=== PATIENT | female | born 1945 | race Caucasian/White ===

== ENCOUNTER → 2023-11-29 10:39 | Outpatient (REF) | payer MEDICARE, SELFPAY ==
[2023-11-29 11:59] LABS: TSH Reflex To Free T4 1.68 uIU/ml (0.47-4.68)
== END ==
LOC: REG 10:39
PROVIDERS: ATTENDING PHYSICIAN Internal Medicine Gastroenterology; FAMILY PHYSICIAN Family Medicine
DX: K59.04 Chronic idiopathic constipation (principal)
CPT/HCPCS: 36415; 84443

== ENCOUNTER → 2023-12-01 11:51 | Outpatient (REF) | payer MEDICARE, SELFPAY | LOC: WDC 11:51 | PROVIDERS: ATTENDING PHYSICIAN Family Medicine | DX: Z12.31 Encounter for screening mammogram for malignant neoplasm of breast (principal) | CPT/HCPCS: 77063; 77067 ==

== ENCOUNTER → 2024-02-28 09:07 | Outpatient (REF) | payer MEDICARE, SELFPAY ==
[2024-02-28 11:58] LABS: Glycohemoglobin (HgbA1c) 6.5 % (4.0-5.6)
[2024-02-28 12:42] LABS: Blood Urea Nitrogen 19 mg/dl (7-17); Calcium 10.4 mg/dl (8.4-10.2); Carbon Dioxide 22 mmol/L (22-30); Chloride 104 mmol/L (98-107); Glucose 95 mg/dl (70-99); Potassium 4.2 mmol/L (3.5-5.1); Sodium 140 mmol/L (135-145); eGFR 51.11
== END ==
LOC: REG 09:07
PROVIDERS: ATTENDING PHYSICIAN Family Medicine
DX: E11.69 Type 2 diabetes mellitus with other specified complication (principal)
CPT/HCPCS: 36415; 80048; 83036

== ENCOUNTER → 2024-03-05 09:11 | Outpatient (REF) | payer MEDICARE, SELFPAY ==
[2024-03-05 10:17] LABS: % Basophils 0.5 % (0-2); % Eosinophils 0.9 % (0-6); % Immature Granulocytes 0.5 % (0-0.5); % Lymphocytes 32.1 % (20.5-51.1); % Monocytes 6.6 % (1.7-9.3); % Neutrophils 59.4 % (42.2-75.2); Absolute Basophils 0.1 10^3/uL (0-0.2); Absolute Eosinophils 0.1 10^3/uL (0-0.7); Absolute Immature Granulocytes 0.1 10^3/uL (0-0.05); Absolute Lymphocytes 4.1 10^3/uL (1.2-3.4); Absolute Monocytes 0.8 10^3/uL (0.1-0.6); Absolute Neutrophils 7.6 10^3/uL (1.4-6.5); Hematocrit 42.8 % (37.0-47.0); Hemoglobin 14.8 g/dL (12.0-16.0); Mean Corp Hgb Conc. 34.6 g/dL (33.0-37.0); Mean Corpuscular Volume 92.6 fL (81.0-99.0); Nucleated Red Blood Cells % 0 %; Platelet Count 284 10^3/uL (130-400); Red Blood Cell Count 4.62 10^6/uL (4.20-5.40); Red Cell Dist. Width 12.6 % (11.5-14.5); White Blood Cell Count 12.8 10^3/uL (4.8-10.8)
== END ==
LOC: SDSPAT 09:11
PROVIDERS: ATTENDING PHYSICIAN Internal Medicine Cardiovascular Disease; FAMILY PHYSICIAN Family Medicine; OTHER PHYSICIAN Internal Medicine
DX: Z01.818 Encounter for other preprocedural examination (principal); R94.39 Abnormal result of other cardiovascular function study; I25.110 Atherosclerotic heart disease of native coronary artery with unstable angina pectoris
CPT/HCPCS: 36415; 85025

== ENCOUNTER 2024-03-06 10:30 | Day surgery (SDC) | payer MEDICARE, SELFPAY ==
[2024-03-05 10:01] VITALS: BMI 33.9
[2024-03-06] VITALS (10 sets, daily range): BP systolic 104–128; BP diastolic 34–106; BMI 33.9
[2024-03-06] MEDS: LOW STRENGTH ASPIRIN 81 MG PO (12:47)
--- NOTE | 2024-03-06 15:07 | ITS.CL.CATH ---
[employer] - Catheterization
Cardiac Catheterization
Procedure Report:
CARDIAC CATHETERIZATION REPORT
Date of Procedure: 03/06/2024
Referring: Sameer Lazcano MD
Indication: Chest discomfort with known CAD
HEMODYNAMIC DATA
AO: 134/54
LV: 134/15
LEFT VENTRICULOGRAPHY: Normal left ventricular wall motion with EF 57%. There has been significant improvement in the LV wall motion compared with the prior study from 2019
CORONARY ANGIOGRAPHY
Dominance: Right
Left Main: Normal
LAD: 20% proximal and 20% mid stenoses with otherwise trivial luminal disease in the LAD system
Circumflex: The circumflex gives rise to a huge OM1 and terminates in the AV groove with a tiny posterolateral branch. OM1 has a long stented segment (2018) with no restenosis
RCA: Relatively small caliber small distribution vessel with 20% proximal stenosis
Closure Device: None-the procedure was performed via the right radial artery. The Casimiro's test was normal prior to the procedure.
Radiation (mGy): 209
DAP (cm2.Gy): 16.8
Fluoroscopy time: 1.4 minutes
CONCLUSIONS
1: Normal left ventricular function with EF 57%
2: Widely patent circumflex stents with mild residual CAD
3. Continue medical therapy/risk factor modification efforts
Copy to: Sameer Lazcano MD, Angel Hunt MD
Seven Dempsey MD, [facility], [facility]
== END 2024-03-06 18:00 | disposition home or self-care (01) ==
LOC: CATH 10:30
PROVIDERS: ATTENDING PHYSICIAN Internal Medicine Cardiovascular Disease; FAMILY PHYSICIAN Family Medicine; OTHER PHYSICIAN Internal Medicine
DX: I25.10 Atherosclerotic heart disease of native coronary artery without angina pectoris (principal); R07.89 Other chest pain; Z95.5 Presence of coronary angioplasty implant and graft; I49.1 Atrial premature depolarization; I10 Essential (primary) hypertension; E78.00 Pure hypercholesterolemia, unspecified; K21.9 Gastro-esophageal reflux disease without esophagitis; J44.9 Chronic obstructive pulmonary disease, unspecified; Z87.891 Personal history of nicotine dependence; E66.9 Obesity, unspecified; Z68.33 Body mass index [BMI] 33.0-33.9, adult; Z79.82 Long term (current) use of aspirin
CPT/HCPCS: 93458; C1894; Q9967

== ENCOUNTER → 2024-04-17 09:00 | Outpatient (REF) | payer MEDICARE, SELFPAY ==
[2024-04-17 11:07] LABS: ALT (SGPT) 32 U/L (0-35); AST (SGOT) 37 U/L (14-36); Albumin 4.7 g/dl (3.5-5.0); Alkaline Phosphatase 76 U/L (38-126); Direct Bilirubin 0.4 mg/dl (0.0-0.4); Total Bilirubin 0.8 mg/dl (0.2-1.3); Total Protein 7.3 g/dl (6.3-8.2)
[2024-04-17 11:43] LABS: Hepatitis B Surface Antigen Negative (Negative)
[2024-04-17 12:01] LABS: Hepatitis B Core Ab, Total Negative (Negative); Hepatitis B Surface Antibody Negative; Hepatitis C Antibody Negative (Negative)
[2024-04-17 12:39] LABS: Hepatitis A Antibody, Total Negative (Negative)
== END ==
LOC: RAD 09:00
PROVIDERS: ATTENDING PHYSICIAN Internal Medicine Gastroenterology; FAMILY PHYSICIAN Family Medicine
DX: R79.89 Other specified abnormal findings of blood chemistry (principal)
CPT/HCPCS: 36415; 76700; 80076; 86704; 86706; 86708; 86803; 87340

== ENCOUNTER → 2024-07-16 09:30 | Outpatient (REF) | payer MEDICARE, SELFPAY | LOC: RAD 09:30 | PROVIDERS: ATTENDING PHYSICIAN Family Medicine | DX: Z13.820 Encounter for screening for osteoporosis (principal); M85.88 Other specified disorders of bone density and structure, other site | CPT/HCPCS: 77080 ==

== ENCOUNTER → 2024-09-03 09:28 | Outpatient (REF) | payer MEDICARE, SELFPAY | LOC: RAD 09:28 | PROVIDERS: ATTENDING PHYSICIAN Internal Medicine Rheumatology; FAMILY PHYSICIAN Physician Assistant | DX: M25.561 Pain in right knee (principal); M25.562 Pain in left knee | CPT/HCPCS: 73560 ==

== ENCOUNTER → 2024-11-06 09:51 | Outpatient (REF) | payer MEDICARE, SELFPAY | LOC: MRI 3T 09:51 | PROVIDERS: ATTENDING PHYSICIAN Internal Medicine Rheumatology; FAMILY PHYSICIAN Physician Assistant | DX: M25.561 Pain in right knee (principal) | CPT/HCPCS: 73721 ==

== ENCOUNTER 2024-12-13 07:54 | Inpatient (IN) | payer MEDICARE, SELFPAY ==
[2024-11-22 11:25] LABS: Hemoglobin 15.1 g/dL (12.0-16.0); Mean Corp Hgb Conc. 33.6 g/dL (33.0-37.0); Mean Corpuscular Hgb 32.3 pg (27.0-31.0); Mean Corpuscular Volume 96.4 fL (81.0-99.0); Mean Platelet Volume 9.3 fL (7.4-10.4); Platelet Count 293 10^3/uL (130-400); Red Blood Cell Count 4.67 10^6/uL (4.20-5.40); Red Cell Dist. Width 12.9 % (11.5-14.5); White Blood Cell Count 14.7 10^3/uL (4.8-10.8)
[2024-11-22 11:55] LABS: ALT (SGPT) 32 U/L (0-35); AST (SGOT) 27 U/L (14-36); Albumin 4.5 g/dl (3.5-5.0); Alkaline Phosphatase 69 U/L (38-126); Blood Urea Nitrogen 31 mg/dl (7-17); Calcium 10.1 mg/dl (8.4-10.2); Carbon Dioxide 29 mmol/L (22-30); Chloride 102 mmol/L (98-107); Glucose 109 mg/dl (70-99); Potassium 4.3 mmol/L (3.5-5.1); Sodium 139 mmol/L (135-145); Total Bilirubin 0.5 mg/dl (0.2-1.3); Total Protein 7.1 g/dl (6.3-8.2); eGFR 45.76
[2024-11-22 13:45] VITALS: BMI 30.7
[2024-11-22 16:02] VITALS: BMI 30.7
[2024-12-13] VITALS (14 sets, daily range): BP systolic 96–163; BP diastolic 39–63; PULSE 62; O2SAT 98; BMI 30.7
[2024-12-13] MEDS: TYLENOL 650 MG PO ×3 (08:29→16:56)
[2024-12-13] MEDS: CELEBREX 200 MG PO (08:29)
[2024-12-13] MEDS: NORMOSOL-R/PLASMALYTE-A 1000 IV ×2 (08:30→12:50)
[2024-12-13 12:10] LABS: Glucose - Point of Care 151 mg/dl (70-99)
--- NOTE | 2024-12-13 12:35 | W.PN.UPDATE ---
Update Note
Progress Note Update
R knee OA s/p R TKA w/ Dr Benitez 12/13/24
DVT prophylaxis - ASA, b/l venous foot pumps
HTN - + parameters - monitor BP
PACs, on Diltiazem - monitor on tele
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
- Resume inhaler
- IS
Chronic kidney disease stage 3 - minimize nephrotoxins
Imw-vhumbir-wrudndjoa diabetes, diet controlled, A1c 6.0 - monitor BS
- + SSI
GERD - continue PPI therapy
Mild cognitive impairment pertaining to memory - minimize opioids as able
Hypercholesterolemia
Coronary artery disease, status post PCI with drug-eluting stent to OM1 10/2020
Ascending aorta dilatation, 4.3 cm
Mild aortic regurgitation
Mild mitral regurgitation
Colon polyps
Fatty liver disease
Degenerative disc disease
Polymyalgia rheumatica, intermittently on Prednisone
Actinic keratosis
Osteopenia
Anxiety
Depression
Remote Lyme's disease
Chronic mild leukocytosis in the setting of intermittent steroid use for PMR, asymptomatic
Obesity, BMI 30.7
History of tobacco abuse
--- NOTE | 2024-12-13 13:38 | PTCARENOTE ---
Patient admitted from PACU post right total knee arthroplasty.The patient denies having any pain.Neurovascular assessment is within normal limits and ongoing.The dressing is intact without any drainage.Vital signs are stable.The patient is in her
bed with the call george in rteach.
[2024-12-13] MEDS: NOVOLOG FLEXPEN-MODERATE RESISTANCE SC (15:23)
[2024-12-13] MEDS: ANCEF 5 IV (16:58)
--- NOTE | 2024-12-13 16:58 | W.PN.UPDATE ---
Update Note
Progress Note Update
Patient doing well s/p R TKR. VSS. Pulm: nonlabored. CV: regular. RLE: Calf soft. Able to fully extend. Dressing CDI. NVI distally. Postop xrays as expected. ASA for DVT prophylaxis. Plan for discharge when stable. Patient has
outpatient PT scheduled for Tuesday but likely will benefit from home PT with VN for 2 weeks as she has steps to manage at home.
[2024-12-13 17:00] LABS: Glucose - Point of Care 228 mg/dl (70-99)
[2024-12-13] MEDS: ASPIRIN 325 MG PO (17:56)
[2024-12-13] MEDS: NOVOLOG FLEXPEN-MODERATE RESISTANCE 3 UNITS SC (17:57)
[2024-12-13] MEDS: TYLENOL PO (20:37)
[2024-12-13] MEDS: SENOKOT 17.2 MG PO (20:37)
[2024-12-13] MEDS: COLACE 100 MG PO (20:37)
[2024-12-13] MEDS: BACTROBAN 2% OINTMENT 1 APPLIC NASAL (20:37)
[2024-12-13] MEDS: PROTONIX 40 MG PO (20:52)
[2024-12-13] MEDS: LIPITOR 20 MG PO (20:52)
[2024-12-13 21:36] LABS: Glucose - Point of Care 237 mg/dl (70-99)
[2024-12-14] MEDS: TYLENOL PO ×2 (00:18→05:00)
[2024-12-14] MEDS: ANCEF 5 IV (00:23)
[2024-12-14 03:00] VITALS: BP 121/51
[2024-12-14] MEDS: STRIVERDI RESPIMAT 2 PUFF INH (07:23)
[2024-12-14] MEDS: SPIRIVA RESPIMAT 2.5 MCG 2 PUFF INH (07:23)
[2024-12-14 07:35] VITALS: BP 109/48
--- NOTE | 2024-12-14 07:41 | W.PN.ORTHO ---
Today's Communication / Plan
-
Patient with steps at home. Would benefit from Home PT and VN. Discharge today or tomorrow pending PT eval
Assessment
.
Distal Motor Intact: Yes
Dressing:
Clean, dry and intact.
Assessment:
doing well s/p R TKR
Plan
.
Surgery / Date: 12/13/2024
DVT Prophylaxis: Aspirin
Activity:
Out of bed.
PT/OT
Discharge Plan: Home w/ VN
Subjective
.
.:
Patient resting comfortably. Doing very well
Vital Signs and Labs
.
Vital Signs and Labs:
Lab Results
11/22/24 10:48
11/22/24 10:48
Temp Pulse Resp BP Pulse Ox
98.4 F 66 16 121/51 95
12/14/24 03:00 12/14/24 03:00 12/14/24 07:28 12/14/24 03:00 12/14/24 07:28
Non-invasive Hgb result: 17.6
Physical Exam
-
Pulm: nonlabored
RLE: NVI distally. Calf soft. Able to fully extend
[2024-12-14 08:27] LABS: Glucose - Point of Care 159 mg/dl (70-99)
[2024-12-14] MEDS: BACTROBAN 2% OINTMENT 1 APPLIC NASAL (08:27)
[2024-12-14] MEDS: ASPIRIN 325 MG PO (08:27)
[2024-12-14] MEDS: TYLENOL 650 MG PO ×2 (08:28→11:45)
[2024-12-14] MEDS: COLACE 100 MG PO (08:28)
[2024-12-14] MEDS: METAMUCIL, KONSYL 1 PACKET PO (08:28)
[2024-12-14] MEDS: ZETIA 10 MG PO (08:29)
[2024-12-14] MEDS: SENOKOT 17.2 MG PO (08:29)
--- NOTE | 2024-12-14 09:31 | W.PN.ORTHO ---
Today's Communication / Plan
-
Await PT and OT recs.
D/c later today if remaining clinically stable.
Assessment
.
Distal Motor Intact: Yes
Dressing:
Scant areas of old incisional bleeding.
Assessment:
R knee OA s/p R TKA w/ Dr Benitez 12/13/24
DVT prophylaxis - ASA, b/l venous foot pumps
HTN - + parameters - BPs stable
PACs, on Diltiazem - maintaining NSR w/ first degree AV block on tele
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
- Resumed inhaler
- IS
Chronic kidney disease stage 3 - minimize nephrotoxins
Bdy-upgacgv-aiphnipsr diabetes, diet controlled, A1c 6.0 - BS readings initially elevated 2* surgical stress, IV steroids in OR
- BS readings expected to improve, however, w/ continuation of diabetic, carb controlled diet, SSI during admission
GERD - continue PPI therapy
Mild cognitive impairment pertaining to memory - minimize opioids as able
Hypercholesterolemia
Coronary artery disease, status post PCI with drug-eluting stent to OM1 10/2020
Ascending aorta dilatation, 4.3 cm
Mild aortic regurgitation
Mild mitral regurgitation
Colon polyps
Fatty liver disease
Degenerative disc disease
Polymyalgia rheumatica, intermittently on Prednisone
Actinic keratosis
Osteopenia
Anxiety
Depression
Remote Lyme's disease
Chronic mild leukocytosis in the setting of intermittent steroid use for PMR, asymptomatic
Obesity, BMI 30.7
History of tobacco abuse
Plan
.
Surgery / Date: R TKA w/ Dr Benitez 12/13/24
DVT Prophylaxis: Aspirin
Activity:
Out of bed.
PT/OT
Discharge Plan: Home w/ VN
Subjective
.
.:
Patient resting comfortably in bed.
R knee pain minimal and currently well tolerated.
Denies any new significant complaints.
Eager for potential d/c today.
Vital Signs and Labs
.
Vital Signs and Labs:
Lab Results
11/22/24 10:48
11/22/24 10:48
Temp Pulse Resp BP Pulse Ox
97.9 F 93 16 109/48 97
12/14/24 07:35 12/14/24 08:27 12/14/24 07:35 12/14/24 08:27 12/14/24 07:35
Non-invasive Hgb result: 17.6
Physical Exam
-
HEENT: No pallor, cyanosis, or jaundice. Throat clear.
NECK: Supple. No JVD.
RESPIRATORY: Lungs clear to auscultation.
CVS: S1, S2 normal. RRR.
ABDOMEN: Soft, non-tender. No distension.
EXTREMITIES: Expected post-surgical R knee edema. Strength equal, no calf pain with palpation/dorsiflexion. Calves soft.
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 No focal deficits. 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
--- NOTE | 2024-12-14 09:51 | W.DS.TRANS ---
DC Summary - [employer]
-
Discharge Instructions:
Sleep Apnea Risk Low
Discharge Diagnosis/Procedures R knee OA s/p R TKA w/ Dr Benitez 12/13/24
Diet Diabetic, Carb Controlled
Activity As tolerated,With Walker
Driving Restrictions Not until seen by your Dr
Bathing Restrictions OK to Shower
Other Services PT,VN
Wound Care Dressing to be removed 1 week post-surgery.
Daphney to be removed at 2 week follow-up with
surgeon's office.
Instructions:
Stand-Alone Forms: Total Hip/Knee Replacement D/C
Changes to Home Medications: Yes
Discharge Medications:
DC Medications w/original date entered in [employer]
simvastatin 40 mg tablet 40 mg PO HS High Cholesterol 12/25/14
pantoprazole 40 mg tablet,delayed release 40 mg PO DAILY #90 tabs 10/10/20
ezetimibe 10 mg tablet 10 mg PO DAILY High Cholesterol 03/06/24
psyllium 1 packet PO Q48H Constipation 11/21/24
umeclidinium 62.5 mcg-vilanterol 25 mcg/actuation powdr for inhalation (Anoro Ellipta) 1 inh inhalation DAILY Lung/Breathing Issues 11/21/24
mupirocin 2 % topical ointment 1 applic intranasal BID #1 tube 11/22/24
Saccharomyces boulardii 250 mg capsule (Florastor) 250 mg PO DAILY #7 caps 12/14/24
acetaminophen 500 mg tablet (Acetaminophen Extra Strength) 1,000 mg (2 x 500 mg) PO Q6H #60 tabs 12/14/24
aspirin 325 mg tablet 325 mg PO DAILY #30 tabs 12/14/24
cefadroxil 500 mg capsule 500 mg PO DAILY #7 caps 12/14/24
diltiazem HCl 120 mg capsule,24 hr,extended release 120 mg PO DAILY Blood Pressure #1 cap 12/14/24
docusate sodium 100 mg capsule 100 mg PO BID #30 caps 12/14/24
furosemide 40 mg tablet 40 mg PO DAILY Fluid Retention/Swelling #1 tab 12/14/24
isosorbide mononitrate 30 mg tablet,extended release 24 hr 30 mg PO DAILY Blood Pressure #1 tab 12/14/24
ondansetron HCl 4 mg tablet 4 mg PO Q6H PRN nausea and vomiting #30 tabs 12/14/24
oxycodone 5 mg tablet 5 - 10 mg (1 - 2 x 5 mg) PO Q6H PRN moderate-severe pain #30 tabs 12/14/24
psyllium husk (aspartame) 3.4 gram oral powder packet (Metamucil Fiber Singles) 1 packet PO DAILY #30 ea 12/14/24
sennosides 8.6 mg tablet (Chelsy-divine) 17.2 mg (2 x 8.6 mg) PO BID #30 tabs 12/14/24
spironolactone 25 mg tablet 25 mg PO DAILY Blood Pressure #1 tab 12/14/24
Home Medication Changes
Saccharomyces boulardii 250 mg capsule (Florastor) 250 mg PO DAILY #7 caps 12/14/24
acetaminophen 500 mg tablet (Acetaminophen Extra Strength) 1,000 mg (2 x 500 mg) PO Q6H #60 tabs 12/14/24
aspirin 325 mg tablet 325 mg PO DAILY #30 tabs 12/14/24
cefadroxil 500 mg capsule 500 mg PO DAILY #7 caps 12/14/24
docusate sodium 100 mg capsule 100 mg PO BID #30 caps 12/14/24
ondansetron HCl 4 mg tablet 4 mg PO Q6H PRN nausea and vomiting #30 tabs 12/14/24
oxycodone 5 mg tablet 5 - 10 mg (1 - 2 x 5 mg) PO Q6H PRN moderate-severe pain #30 tabs 12/14/24
psyllium husk (aspartame) 3.4 gram oral powder packet (Metamucil Fiber Singles) 1 packet PO DAILY #30 ea 12/14/24
sennosides 8.6 mg tablet (Chelsy-divine) 17.2 mg (2 x 8.6 mg) PO BID #30 tabs 12/14/24
Pending Results: No
[2024-12-14 09:55] VITALS: BP 134/50; PULSE 68
--- NOTE | 2024-12-14 10:09 | CM ---
Reviewed the chart notes and spoke with the patient at the bedside. The patient resides alone in a first floor apartment with a total of 14 steps to enter the apartment. The patient has a rolling walker. The patient reports no VN/SNF in the past.
The patient confirmed her pharmacy of choice is [facility]. CM consult for VN received. Discussed area agencies. VN selected, referral sent via [facility]. Patient's daughter to provide transportation home. CM continues to be available to
patient/family and is monitoring medical plan for needs at discharge.
Plan: Discharge to home with VN services.
[2024-12-14 11:15] VITALS: BP 154/60
[2024-12-14] MEDS: NOVOLOG FLEXPEN-MODERATE RESISTANCE SC (11:24)
[2024-12-14 11:28] VITALS: BP 154/60
[2024-12-14 11:58] LABS: Glucose - Point of Care 240 mg/dl (70-99)
[2024-12-14] MEDS: NOVOLOG FLEXPEN-MODERATE RESISTANCE 3 UNITS SC (12:38)
== END 2024-12-14 14:25 | disposition home health service (06) | DRG 470 ==
LOC: 2 SOUTH 07:54
PROVIDERS: ADMITTING PHYSICIAN Orthopaedic Surgery; FAMILY PHYSICIAN Physician Assistant; REFERRING PHYSICIAN Internal Medicine
PROC: 0SRC0J9 Replacement of Right Knee Joint with Synthetic Substitute, Cemented, Open Approach (ICD-10-PCS; 2024-12-13)
DX: M17.11 Unilateral primary osteoarthritis, right knee (principal); N18.30 Chronic kidney disease, stage 3 unspecified; I12.9 Hypertensive chronic kidney disease with stage 1 through stage 4 chronic kidney disease, or unspecified chronic kidney disease; E78.00 Pure hypercholesterolemia, unspecified; I25.10 Atherosclerotic heart disease of native coronary artery without angina pectoris; I77.810 Thoracic aortic ectasia; J44.89 Other specified chronic obstructive pulmonary disease; E11.22 Type 2 diabetes mellitus with diabetic chronic kidney disease; K21.9 Gastro-esophageal reflux disease without esophagitis; E66.9 Obesity, unspecified; D72.829 Elevated white blood cell count, unspecified; F32.A Depression, unspecified; F41.9 Anxiety disorder, unspecified; M85.80 Other specified disorders of bone density and structure, unspecified site; L57.0 Actinic keratosis; I49.1 Atrial premature depolarization; I44.0 Atrioventricular block, first degree; M35.3 Polymyalgia rheumatica; G31.84 Mild cognitive impairment of uncertain or unknown etiology; K76.0 Fatty (change of) liver, not elsewhere classified; G47.33 Obstructive sleep apnea (adult) (pediatric); Z95.5 Presence of coronary angioplasty implant and graft; Z86.0100 Personal history of colon polyps, unspecified; Z87.891 Personal history of nicotine dependence; Z68.30 Body mass index [BMI] 30.0-30.9, adult; Z79.52 Long term (current) use of systemic steroids; Z79.82 Long term (current) use of aspirin; Z79.51 Long term (current) use of inhaled steroids; Z90.49 Acquired absence of other specified parts of digestive tract; Z88.2 Allergy status to sulfonamides; Z98.41 Cataract extraction status, right eye; Z98.42 Cataract extraction status, left eye
CPT/HCPCS: 36415; 73560; 80053; 82962; 83036; 85027; 87070; 93005; 94640; 97110; 97116; 97162; 97166; 97530; 97535; C1713; C1776

== ENCOUNTER → 2025-06-05 09:00 | Outpatient (REF) | payer MEDICARE, SELFPAY ==
[2025-06-05 10:46] LABS: Glycohemoglobin (HgbA1c) 5.9 % (4.0-5.6)
[2025-06-05 10:47] LABS: Hematocrit 45.2 % (37.0-47.0); Hemoglobin 15.1 g/dL (12.0-16.0); Mean Corp Hgb Conc. 33.4 g/dL (33.0-37.0); Mean Corpuscular Volume 95.6 fL (81.0-99.0); Nucleated Red Blood Cells % 0 %; Platelet Count 296 10^3/uL (130-400); Red Cell Dist. Width 12.9 % (11.5-14.5)
[2025-06-05 11:19] LABS: ALT (SGPT) 29 U/L (0-35); AST (SGOT) 26 U/L (14-36); Albumin 4.8 g/dl (3.5-5.0); Alkaline Phosphatase 69 U/L (38-126); Blood Urea Nitrogen 24 mg/dl (7-17); Calcium 10.3 mg/dl (8.4-10.2); Carbon Dioxide 29 mmol/L (22-30); Chloride 105 mmol/L (98-107); Glucose 104 mg/dl (70-99); HDL Cholesterol 40 mg/dl; LDL Cholesterol, Calculated 62 mg/dl; Potassium 4.8 mmol/L (3.5-5.1); Sodium 141 mmol/L (135-145); Total Protein 7.2 g/dl (6.3-8.2); Very Low Density Lipoprotein 41 mg/dl (0-30); eGFR 41.57
== END ==
LOC: REG 09:00
PROVIDERS: ATTENDING PHYSICIAN Physician Assistant
DX: E78.1 Pure hyperglyceridemia (principal); E78.00 Pure hypercholesterolemia, unspecified; M35.3 Polymyalgia rheumatica; I10 Essential (primary) hypertension; K21.9 Gastro-esophageal reflux disease without esophagitis; J44.9 Chronic obstructive pulmonary disease, unspecified; R73.01 Impaired fasting glucose
CPT/HCPCS: 36415; 80053; 80061; 83036; 84443; 85025

== ENCOUNTER → 2025-07-23 09:06 | Outpatient (REF) | payer MEDICARE, SELFPAY | LOC: RAD 09:06 | PROVIDERS: ATTENDING PHYSICIAN Internal Medicine Critical Care Medicine; FAMILY PHYSICIAN Physician Assistant | DX: J44.9 Chronic obstructive pulmonary disease, unspecified (principal) | CPT/HCPCS: 71046 ==